=== PATIENT | male | born 1975 | race Caucasian/White ===

== ENCOUNTER 2017-05-09 15:14 | Emergency (ER) | payer MEDICAID ==
--- NOTE | 2017-05-09 15:22 | CPEKG ---
Heart Rate: 100 RR Interval: 600 P-R Interval: 132 QRSD Interval: 108 QT Interval: 364 QTC Interval: 470 P Beulah: 46 QRS Beulah: 56 T Wave Beulah: 0 EKG Severity - OTHERWISE NORMAL ECG - EKG Impression: SINUS TACHYCARDIA Electronically Signed By: Joel Matamoros 10-May-2017 16:19:10
[2017-05-09] MEDS ORDERED: NS 1,000 ML IV ONE (15:26)
--- NOTE | 2017-05-09 15:28 | EDPHY ---
HPI/HX/ROS/PE/MDM Narrative: CHIEF COMPLAINT: V-fib arrest HISTORY OF PRESENT ILLNESS: The patient is a 42-year-old male, brought in by EMS , after cardiac arrest. PD found the patient on the side walk by a graveyard unconscious, cyanotic, apneic, and pulseless. CPR was started. PD gave patient 4mg Narcan intranasally, and applied an AED. AED detected a shockable rhythm and delivered a shock. EMS arrived just after the defibrillation, and the patient had agonal breathing, with a pulse. Enroute, the patient became alert and awake. He has since been stable with normal vitals. The patient reports waking up this morning and the "starting to drink". He can recall almost no events leading up to the presumed cardiac arrest.. Patient does not recall being in the graveyard at all. He admits to LSD use today. He states "I'm pretty sure I blacked out drunk and probably did some drugs." He states he is not usually in the habit of doing heroin. Patient complains of mild chest pain from the AED. He reports no family history of sudden cardiac . He denies hypertension, arrhythmias, pulmonary issues, or any medical problems except a remote history of seizures. REVIEW OF SYSTEMS: Aside from elements discussed in the HPI, a comprehensive 10-point review of systems was reviewed and is negative. PAST MEDICAL HISTORY: Seizure disorder SOCIAL HISTORY: Alcohol use. Marijuana use. Substance abuse. Homeless. VITAL SIGNS: Reviewed by me GENERAL: Disheveled, alert, conversant, appropriate. Resting comfortably in no respiratory distress. HEENT: Atraumatic. Eyes: No icterus, no injection. No nystagmus. Mouth: Dried blood in mouth and on lips (presumable from epistaxis from nasal trumpet) . No erythema or lesions. Neck: supple with no adenopathy. LUNGS: Clear to auscultation bilaterally, no wheezes, rhonchi or rales. CARDIAC: Regular rate and rhythm, no rubs, murmurs or gallops. ABDOMEN: Soft, nontender, nondistended, bowel sounds normal. BACK: No CVA tenderness. EXTREMITIES: No trauma. No edema. Range of motion is normal throughout. NEURO: Alert and oriented, grossly nonfocal. SKIN: Warm and dry, no rash. PSYCHIATRIC: Normal mentation, no agitation. ED Course: Patient comes to ED after V-fib arrest. Patient was shocked by AED in the field by PD. He admits to heavy alcohol use and LSD use today. Plan to check lab work and toxicology. 12-LEAD EKG: Please see the full report in [facility]. My interpretation: Sinus tachycardia. Laboratory data demonstrtes troponin of 0.015, toxicology is positive for Marijuana, Cocaine, and Opiates. I held a long discussion with the patient and reviewed the events and the implications of a v-fib arrest. I strongly recommended admission to the hospital. Patient is refusing admission. We discussed v fib arrests, cardiac arrest, coronary artery disease, cocaine use, opiate use, respiratory arrest at length. I explained what happened and what the next medically necessary steps are. We discussed admission to hospital, cardiology consultation, possible cardiac cath, possible defibrillator placement. We discussed sudden , coma , arrhythmias, cardiac arrest, seizures, stroke, persistant vegitative state. Patient understood all my concerns and understood all the implications of refusing. He understood clearly that his heart had stopped/fibrillated and that he would have without the defibrillation. At the time of my discussions the patient was very clinically sober. His breath was 0.098 an hour previously. I believe he is a competant decision maker. I referred patient to [facility] and discussed the case with Dr Leiva. Dr Leiva will try to contact the patient to arrange close follow up. See discharge instructions. MDM: Differential diagnosis included v fib arrest, cardiac ischemia, cocaine effects , respiratory arrest, opiate induced respiratory arrest, primary cardiac arrest , drug or alcohol abuse. Critical care time spent by me, Dr. Sahu, exclusively with this patient was 40 minutes, exclusive of PA time and exclusive of procedures. The organ system at risk was cardiac and neurological and I obtained bloodwork, ekg, and held extensive discussion with the patient in an attempt to convince him to be admitted for his safety, and to prevent significant risk of . - Data Points Laboratory Results: Laboratory Results 05/09/17 15:45 05/09/17 15:45 05/09/17 05/09/17 05/09/17 15:50 15:45 15:45 WBC 5.24 10^3/uL 10^3/uL (3.80-9.50) RBC 4.68 10^6/uL 10^6/uL (4.40-6.38) Hgb 16.7 g/dL g/dL (13.7-17.5) Hct 46.6 % % (40.0-51.0) MCV 99.6 fL fL (81.5-99.8) MCH 35.7 pg H pg (27.9-34.1) MCHC 35.8 g/dL g/dL (32.4-36.7) RDW 11.8 % % (11.5-15.2) Plt Count 283 10^3/uL 10^3/uL (150-400) MPV 8.8 fL fL (8.7-11.7) Neut % (Auto) 40.7 % % (39.3-74.2) Lymph % (Auto) 42.6 % % (15.0-45.0) [place] % (Auto) 12.0 % % (4.5-13.0) Eos % (Auto) 1.9 % % (0.6-7.6) Baso % (Auto) 1.3 % % (0.3-1.7) Nucleat RBC Rel Count 0.0 % % (0.0-0.2) Absolute Neuts (auto) 2.13 10^3/uL 10^3/uL (1.70-6.50) Absolute Lymphs (auto) 2.23 10^3/uL 10^3/uL (1.00-3.00) Absolute Monos (auto) 0.63 10^3/uL 10^3/uL (0.30-0.80) Absolute Eos (auto) 0.10 10^3/uL 10^3/uL (0.03-0.40) Absolute Basos (auto) 0.07 10^3/uL 10^3/uL (0.02-0.10) Absolute Nucleated RBC 0.00 10^3/uL 10^3/uL (0-0.01) Immature Gran % 1.5 % H % (0.0-1.1) Immature Gran # 0.08 10^3/uL 10^3/uL (0.00-0.10) Sodium 141 mEq/L mEq/L (134-144) Potassium 4.1 mEq/L mEq/L (3.5-5.2) Chloride 108 mEq/L mEq/L (97-110) Carbon Dioxide 19 mEq/l L mEq/l (22-31) Anion Gap 14 mEq/L mEq/L (8-16) BUN 9 mg/dL mg/dL (7-23) Creatinine 0.9 mg/dL mg/dL (0.7-1.3) Estimated GFR > 60 Glucose 89 mg/dL mg/dL (70-100) Calcium 9.3 mg/dL mg/dL (8.5-10.4) Troponin I 0.015 ng/mL ng/mL (0.000-0.034) Urine Opiates Screen NON-NEGATIVE H (NEGATIVE) Urine Barbiturates NEGATIVE (NEGATIVE) Ur Phencyclidine Scrn NEGATIVE (NEGATIVE) Ur Amphetamine Screen NEGATIVE (NEGATIVE) U Benzodiazepines Scrn NEGATIVE (NEGATIVE) Urine Cocaine Screen NON-NEGATIVE H (NEGATIVE) U Marijuana (THC) Screen NON-NEGATIVE H (NEGATIVE) Medications Given: Discontinued Medications Sodium Chloride (Ns) 1,000 mls @ 0 mls/hr IV EDNOW ONE; Wide Open PRN Reason: Protocol Stop: 05/09/17 15:27 Last Admin: 05/09/17 15:54 Dose: 1,000 mls Nicotine (Nicoderm Cq) 21 mg TD EDNOW ONE Stop: 05/09/17 15:45 Last Admin: 05/09/17 15:55 Dose: 21 mg General Initial Vital Signs: Initial Vital Signs Temperature (C) 36.7 C 05/09/17 15:14 Heart Rate 104 H 05/09/17 15:14 Respiratory Rate 16 05/09/17 15:14 Blood Pressure 113/81 H 05/09/17 15:14 O2 Sat (%) 93 05/09/17 15:14 O2 Delivery Mode Room Air Allergies/Adverse Reactions: No Known Allergies Allergy (Verified 08/25/16 08:40) Home Medications: Medication Instructions Recorded NK [No Known Home Meds] 05/09/17 Departure - Departure Disposition: Against Medical Advice Clinical Impression: Cardiac arrest with ventricular fibrillation, Cocaine abuse Opiate and narcotic poisoning Qualifiers: Encounter type: initial encounter Injury intent: accidental or unintentional Qualified Code(s): T40.601A - Poisoning by unspecified narcotics, accidental ( unintentional), initial encounter Condition: Fair Instructions: Palpitations (ED), Polysubstance Abuse (ED) Additional Instructions: You understand that you have we are recommending strongly be admitted to the hospital. You understand that you had a cardiac arrest today and that your life was saved by the police. You understand that you had any irregular heart rhythm which will kill you if it happens again. You understand that you need a implanted defibrillator. Stop using drugs. Stop using cocaine. Stop taking opiates. You understand the risk of leaving without further treatment includes , coma, heart catheterization, seizures, brain damage, stroke, or other on specify complications. Follow up with [facility] as soon as possible. Referrals: Patient,NotPresent [Unknown] - As per Instructions Sarmad Leiva MD [Medical Doctor] - As per Instructions (Follow-up at [facility] as soon as possible. ) Report Scribed for: Kimberley Sahu Report Scribed by: Antonia Sinclair Date of Report: 05/09/17 Time of Report: 15:28 Physician Review and Approval Statement: Portions of this note were transcribed by a medical insurance claims processor. I personally performed a history, physical exam, medical decision making, and confirmed accuracy of information the transcribed note.
[2017-05-09 15:30] VITALS: RESP 16
[2017-05-09] MEDS ORDERED: NICOTINE 21 MG/24 HR PATCH TD ONE (15:44)
[2017-05-09 15:52] LABS: % IMMATURE GRANULYOCYTES 1.5 % (0.0-1.1); ABSOLUTE IMMATURE GRANULOCYTES 0.08 10^3/uL (0.00-0.10); ADD DIFF? NO; ADD MORPH? NO; ADD SCAN? NO; ATYPICAL LYMPHOCYTE FLAG 10 (0-99); FRAGMENT RBC FLAG 0 (0-99); HEMATOCRIT 46.6 % (40.0-51.0); HEMOGLOBIN 16.7 g/dL (13.7-17.5); LEFT SHIFT FLG 10 (0-99); LIPEMIA HEMOLYSIS FLAG 90 (0-99); MEAN CELL HEMOGLOBIN 35.7 pg (27.9-34.1); MEAN CELL HEMOGLOBIN CONCENTR. 35.8 g/dL (32.4-36.7); MEAN CELL VOLUME 99.6 fL (81.5-99.8); MEAN PLATELET VOLUME 8.8 fL (8.7-11.7); PLATELET CLUMPS FLAG 0 (0-99); PLATELET COUNT 283 10^3/uL (150-400); RED BLOOD CELL COUNT 4.68 10^6/uL (4.40-6.38); RED CELL DISTRIBUTION WIDTH 11.8 % (11.5-15.2)
[2017-05-09 16:09] LABS: ANION GAP 14 mEq/L (8-16); CALCIUM 9.3 mg/dL (8.5-10.4); CARBON DIOXIDE 19 mEq/l (22-31); CHLORIDE 108 mEq/L (97-110); CREATININE 0.9 mg/dL (0.7-1.3); GLOMERULAR FILTRATION RATE > 60; GLUCOSE 89 mg/dL (70-100); POTASSIUM 4.1 mEq/L (3.5-5.2); SODIUM 141 mEq/L (134-144)
[2017-05-09 16:21] LABS: TROPONIN I 0.015 ng/mL (0.000-0.034)
[2017-05-09 18:00] VITALS: BP 128/94; PULSE 79; TEMP 97.9; O2SAT 92
== END 2017-05-09 17:58 | disposition left against medical advice (07) ==
LOC: EDUNIT#
DX: I46.9 Cardiac arrest, cause unspecified (principal); I49.01 Ventricular fibrillation; F14.10 Cocaine abuse, uncomplicated; E86.9 Volume depletion, unspecified; T40.601A Poisoning by unspecified narcotics, accidental (unintentional), initial encounter
CPT/HCPCS: 80305